=== PATIENT | female | born 1980 | race Caucasian/White ===

== ENCOUNTER 2022-11-10 08:05 | Outpatient (CLI) | payer BC, SELFPAY ==
--- NOTE | 2022-11-10 08:15 | CRLHL7_ITS ---
For Patients: As a result of the Century Cures Act, medical imaging exams and procedure reports are released immediately into your electronic medical record. You may view this report before your referring provider. If you have questions, please contact your health care provider. BILATERAL SCREENING MAMMOGRAM WITH COMPUTER-AIDED DETECTION AND TOMOSYNTHESIS TECHNIQUE: CC and MLO views were obtained. These mammographic images have been obtained using full-field digital technique. These mammographic images were interpreted with the benefit of computer-aided detection. Breast Tomosynthesis was used in this interpretation. COMPARISON FILM: 11/04/21, 10/29/20. FINDINGS: There are scattered areas of fibroglandular density IMPRESSION: There is no radiographic evidence for malignancy. ASSESSMENT: BI-RADS Category 1: Negative RECOMMENDATION: Routine screening mammogram in 1 year. A lay language report of this examination will be provided to the patient. Rafita Dangelo M.D. Diagnostic Radiologist [email or web address] Transcribed: 2:08 pm DW/Dictated by: Rafita Dangelo MD @ 11/10/2022 9:45:00 AM (Electronically Signed)
== END 2022-11-10 08:06 | disposition home or self-care (01) ==
LOC: MAMMO 08:08
DX: Z12.31 Encounter for screening mammogram for malignant neoplasm of breast (principal)
CPT/HCPCS: 77063; 77067

== ENCOUNTER 2023-07-16 09:37 | Emergency (ER) | payer BC, SELFPAY ==
[2023-07-16 09:43] VITALS: BP 122/80; PULSE 89; RESP 20; TEMP 37.2; O2SAT 99; BMI 35.7
--- NOTE | 2023-07-16 09:58 | ED_ITS ---
HPI - General Adult General Time Seen by Provider: 09:58 Date Seen: 07/16/23 Chief complaint: Diarrhea Stated complaint: dog is sick- thinks she caught it Time Seen by Provider: 07/16/23 09:58 Source: patient, RN notes reviewed and old records reviewed Mode of arrival: ambulatory Limitations: no limitations History of Present Illness HPI narrative: Patient is a very pleasant 43-year-old female who comes to the emergency room with diarrhea at the urging of her campus receptionist. Kenna has been taking care of a 10-week-old puppy that was recently diagnosed with Cryptosporidium, salmon Megan, Campylobacter. She started developing diarrhea without vomiting on July 13. Does describe some chills but no fever and she has been able to eat and drink. She has not noticed any blood in her stool. She notes no history of HIV, diabetes or other significant medical illness. Related Data Allergies Allergy/AdvReac Type Severity Reaction Status Date / Time No Known Drug Allergies Allergy Verified 07/16/23 09:42 Review of Systems Status of ROS: Reports: 6 or more systems reviewed and unremarkable except as noted in History and below Const: Reports: chills; Denies: fever Eyes: Denies: change in vision ENMT: Denies: difficulty swallowing Cardio: Denies: chest pain or shortness of breath with exertion Resp: Denies: shortness of breath GI: Reports: diarrhea; Denies: abdominal pain, nausea, vomiting, difficulty swallowing or blood in stool : Denies: painful urination Musculo: Reports: other (Occasional body aches); Denies: back pain PFSH PFSH Social History Smoking Status: Never smoker Do you use any of these nicotine containing products: None Second hand tobacco smoke exposure: No How often do you have a drink containing alcohol: monthly or less How many standard drinks containing alcohol do you have on a typical day: 1 or 2 How often do you have six or more drinks on one occasion: Never AUDIT-C Alcohol total score: 1 Non-prescribed substance use: denies use service: No Exam Narrative: Exam Narrative: Alert and oriented. Nontoxic in appearance. Well spoken. Good color. Lips are moist. Heart with regular rate and rhythm lungs are clear to auscultation. Abdomen is soft and nontender. Moving all extremities. Const: Vital Signs, click to edit/add: Vital Signs - 24 hr 07/16/23 09:43 Temperature 98.9 F Pulse Rate [Pulse Oximeter] 89 Respiratory Rate 20 Blood Pressure [Ri ght Upper Arm] 122/80 Pulse Oximetry 99 Oxygen Delivery Me thod Room Air Documenting provider has reviewed patient's vital signs: yes Course Vital Signs Vital signs: Initial Vital Signs Temperature 98.9 F 07/16/23 09:43 Temperature Source Temporal Artery Scan 07/16/23 09:43 Pulse Rate 89 07/16/23 09:43 Pulse Rhythm Regular 07/16/23 09:43 Respiratory Rate 20 07/16/23 09:43 Blood Pressure 122/80 07/16/23 09:43 Blood Pressure Mean 94 07/16/23 09:43 Blood Pressure Position Supine 07/16/23 09:43 Pulse Oximetry 99 07/16/23 09:43 Oxygen Delivery Method Room Air 07/16/23 09:43 Vital Signs Temperature 98.9 F 07/16/23 09:43 Pulse Rate 89 07/16/23 09:43 Respiratory Rate 20 07/16/23 09:43 Blood Pressure 122/80 07/16/23 09:43 Pulse Oximetry 99 07/16/23 09:43 Oxygen Delivery Method Room Air 07/16/23 09:43 Temperature 98.9 F 07/16/23 09:43 Pulse Rate 89 07/16/23 09:43 Respiratory Rate 20 07/16/23 09:43 Blood Pressure 122/80 07/16/23 09:43 Pulse Oximetry 99 07/16/23 09:43 Oxygen Delivery Method Room Air 07/16/23 09:43 Medical Decision Making [facility] Narrative Medical decision making narrative: 1. Diarrhea-this is likely infectious as patient has had exposure to a puppy with Cryptosporidium, Campylobacter as well as salmonella. Patient however is nontoxic in appearance, is able to eat and drink, has no abdominal pain or blood in her stool. She also has no history of high risk illnesses or immuno compromising medications. Therefore, it is recommended that no antibiotics be used for these self limited infections. Patient is somewhat upset that her campus receptionist told her to come in. I did explain that sometimes antibiotics actually make these illnesses worse and I do not recommend antibiotics at this time. However, if she develops high fever, vomiting, blood in her stool, worsening abdominal pain I would like to have her re-evaluated in the emergency room. At this time I do not think she needs any IV and a biotics, IV fluids or blood work. I do however recommend stool culture. 2. Disposition-home at this time. Recommend vigorous handwashing after using the bathroom as I do suspect that this particular diarrhea event is contagious. Patient voices understanding. Medical Records Medical records reviewed: Yes I reviewed the patient's medical records Discharge Plan Discharge Clinical Impression: Diarrhea Patient Disposition: Home, Self-Care Condition: Unchanged Additional Instructions: Will await stool culture to check for Campylobacter, Cryptosporidium and salmonella. With a mild case in a healthy person it is not recommended to use antibiotics. However, should you experience increased vomiting, dehydration, high fever then we would like to re-evaluate you in the emergency room. You are presumed contagious at this point. Recommend good handwashing. Follow Up/Referrals: Provider,Not a Local [Primary Care Provider] - Stand Alone Forms: [employer] Info Instructions
== END 2023-07-16 10:43 | disposition home or self-care (01) ==
LOC: ED 10:38
PROVIDERS: Emergency Provider Family Medicine
DX: R19.7 Diarrhea, unspecified (principal)
CPT/HCPCS: 87045; 87046; 87427; 99282; 99283

== ENCOUNTER 2023-11-14 18:17 | Outpatient (CLI) | payer BC, SELFPAY ==
--- NOTE | 2023-11-14 18:20 | CRLHL7_ITS ---
For Patients: As a result of the Century Cures Act, medical imaging exams and procedure reports are released immediately into your electronic medical record. You may view this report before your referring provider. If you have questions, please contact your health care provider. BILATERAL SCREENING MAMMOGRAM WITH COMPUTER-AIDED DETECTION AND TOMOSYNTHESIS TECHNIQUE: CC and MLO views were obtained. These mammographic images have been obtained using full-field digital technique. These mammographic images were interpreted with the benefit of computer-aided detection. Breast Tomosynthesis was used in this interpretation. COMPARISON FILM: 11/10/22, 11/04/21, 10/29/20. FINDINGS: The breasts are heterogeneously dense, which may obscure small masses IMPRESSION: There is no radiographic evidence for malignancy. ASSESSMENT: BI-RADS Category 2: Benign RECOMMENDATION: Routine screening mammogram in 1 year. A lay language report of this examination will be provided to the patient. Cierra Christensen M.D. Diagnostic/Breast Radiologist [email or web address] RISA/Dictated by: Cierra Christensen MD @ 11/16/2023 9:15:00 AM (Electronically Signed)
== END 2023-11-14 18:18 | disposition home or self-care (01) ==
LOC: MAMMO 18:18
DX: Z12.31 Encounter for screening mammogram for malignant neoplasm of breast (principal); R92.2 Inconclusive mammogram
CPT/HCPCS: 77063; 77067

== ENCOUNTER 2024-12-05 09:20 | Outpatient (CLI) | payer BC, SELFPAY ==
--- NOTE | 2024-12-05 09:15 | CRLHL7_ITS ---
For Patients: As a result of the Century Cures Act, medical imaging exams and procedure reports are released immediately into your electronic medical record. You may view this report before your referring provider. If you have questions, please contact your health care provider. BILATERAL SCREENING MAMMOGRAM WITH COMPUTER-AIDED DETECTION AND TOMOSYNTHESIS TECHNIQUE: CC and MLO views were obtained. These mammographic images have been obtained using full-field digital technique. These mammographic images were interpreted with the benefit of computer-aided detection. Breast Tomosynthesis was used in this interpretation. COMPARISON FILM: 11/14/23, 11/10/22, 11/04/21. FINDINGS: The breasts are heterogeneously dense, which may obscure small masses. IMPRESSION: There is no radiographic evidence for malignancy. ASSESSMENT: BI-RADS Category 1: Negative RECOMMENDATION: Routine screening mammogram in 1 year. A lay language report of this examination will be provided to the patient. Rafita Dangelo M.D. Diagnostic Radiologist [email or web address] SP/Dictated by: Rafita Dangelo MD @ 12/05/2024 10:48:00 AM (Electronically Signed)
== END 2024-12-05 09:21 | disposition home or self-care (01) ==
LOC: MAMMO 09:22
PROVIDERS: Visit Provider Family Medicine
DX: Z12.31 Encounter for screening mammogram for malignant neoplasm of breast (principal); R92.333 Mammographic heterogeneous density, bilateral breasts
CPT/HCPCS: 77063; 77067